=== PATIENT | male | born 1975 | race Caucasian/White ===

== ENCOUNTER 2023-11-07 13:14 | Emergency (ER) | payer SELFPAY ==
--- NOTE | ~2023-11-07 | XR_ITS ---
EXAMINATION: XR ribs LT 2V w CXR 2V DATE: 11/07/2023 18:11 INDICATION: Left rib pain. TECHNIQUE: Frontal and lateral views of the chest and 2 views on 3 radiographs of the left ribs were obtained. COMPARISON: None. FINDINGS: CHEST TWO VIEWS: There is no pneumonia, pleural effusion, or pneumothorax. The heart size is normal. There is mild chronic anterior wedging of multiple vertebral bodies. LEFT RIBS: There is no rib fracture. IMPRESSION: 1. No rib fracture. Reviewed, dictated and finalized at location E. IMPRESSION: 1. No rib fracture.
--- NOTE | ~2023-11-07 | XR_ITS ---
EXAMINATION: XR knee RT 3V DATE: 11/07/2023 18:11 INDICATION: Right knee pain. TECHNIQUE: 3 views of right knee were obtained. COMPARISON: None. FINDINGS: Bone alignment is normal. No fracture. There is mild tricompartmental osteoarthritis. No kn ee joint effusion. IMPRESSION: 1. Mild right knee osteoarthritis. Reviewed, dictated and finalized at location E.
[2023-11-07 13:17] VITALS: BP 111/68; PULSE 76; RESP 16; TEMP 36.8; O2SAT 100
[2023-11-07 15:12] VITALS: BP 98/65; PULSE 88; TEMP 36.8; O2SAT 100
--- NOTE | 2023-11-07 17:07 | ECG_ITS ---
Measurements Intervals [place] Rate: 65 P: 63 UT: 138 QRS: 22 QRSD: 94 T: 120 QT: 419 QTc: 438 Interpretive Statements SINUS RHYTHM LEFT ATRIAL ENLARGEMENT LEFT VENTRICULAR HYPERTROPHY AND ST-T CHANGE ST-T WAVE ABNORMALITY IN HIGH LATERAL LEADS- CONSIDER ISCHEMIA BASELINE ARTIFACT- I, AVR, AVL ABNORMAL ECG NO PREVIOUS ECG AVAILABLE FOR COMPARISON Electronically Signed On 11-07-2023 17:36:38 CDT by Aric Crystal D.O.
--- NOTE | 2023-11-07 17:20 | ED.GENADULT ---
HPI - General Adult General Chief complaint: Unspecified Stated complaint: left side rib pain x 2 weeks Time Seen by Provider: 11/07/23 17:07 Source: patient Mode of arrival: ambulatory Limitations: no limitations History of Present Illness HPI narrative: This is a 48 year old male that presents to the ER for left sided rib pain. Ongoing over the last week. Reports the pain is worse with palpation of the area. Under his left lower ribs. He has not been taking anything for pain. No associated symptoms. Denies fever, shortness of breath, cough or lower extremity edema. Related Data Allergies Allergy/AdvReac Type Severity Reaction Status Date / Time No Known Allergies Allergy Verified 11/07/23 17:32 Review of Systems Review of Systems: CONSTITUTIONAL: Denies fever CARDIOVASCULAR: Reports chest/rib pain. Denies edema. RESPIRATORY: Denies cough or dyspnea. All systems reviewed & are unremarkable except as noted in HPI and below PMFSH Past Medical History Medical History (Updated 11/07/23 @ 22:35 by Mary Jo Frank PA-C) No active medical problems Social History Social History (Updated 11/07/23 @ 17:22 by Mary Jo Frank PA-C) Smoking status: Never smoker Exam Narrative: GENERAL: Well-appearing, well-nourished, and in no acute distress. HEAD: Normocephalic, atraumatic. EYES: EOMI. NECK: Supple. No adenopathy or masses. No JVD CHEST: Clear to auscultation. No respiratory distress. No wheezes rales or rhonchi HEART: Regular rate and rhythm. Systolic murmur heard best at the right sternal border. Normal peripheral pulses. EXTREMITIES: Normal range of motion. No edema or erythema. SKIN: Warm, dry, no rash. NEURO: No focal deficits. Alert and oriented x3. PSYCH: Normal mood and affect Course Course Emergency Course: Patient updated on his workup and recommendation for admission. He declines to be admitted at this time Consultations Consultation #1: Spoke with Dr. Carbajal about patient and workup. Does recommend admission for further evaluation Date: 11/07/23 Vital Signs Vital signs: Vital Signs Temperature 98.3 F 11/07/23 13:17 Pulse Rate 76 11/07/23 13:17 Respiratory Rate 16 11/07/23 13:17 Blood Pressure 111/68 11/07/23 13:17 Pulse Oximetry 100 11/07/23 13:17 Oxygen Delivery Room Air 11/07/23 13:17 Temperature 98.2 F 11/07/23 15:12 Pulse Rate 66 11/07/23 21:01 Respiratory Rate 13 11/07/23 21:01 Blood Pressure 102/78 11/07/23 21:01 Pulse Oximetry 100 11/07/23 21:01 Oxygen Delivery Room Air 11/07/23 13:17 Medical Decision Making MDM Narrative Medical decision making narrative: Patient presents to the emergency department for chest pain that has been ongoing over the last week. He is afebrile and nontoxic appearing. His vitals are stable. Cbc without leukocytosis. Shows normocytic anemia hemoglobin of 13.7. Metabolic panel without concerning findings. EKG does show significant T-wave inversions in the lateral leads. His baseline and 3 hour troponin are not elevated, although up trending. Chest x-ray without acute findings. Patient also endorsing some right posterior knee pain. His right knee x-ray does show mild osteoarthritis. Spoke with Dr. Carbajal about patient and workup. Does recommend admission for further evaluation. Patient updated on his workup and recommendation for admission. He declines to be admitted at this time. Will be given primary and Cardiology for follow-up. Instructed to return at any time for further evaluation and management Differential Diagnosis Differential Diagnosis: Chest wall pain, angina, valvular disease, pneumonia Vital Signs Vital Signs: Vital Signs Temperature 98.3 F 11/07/23 13:17 Pulse Rate 76 11/07/23 13:17 Respiratory Rate 16 11/07/23 13:17 Blood Pressure 111/68 11/07/23 13:17 Pulse Oximetry 100 11/07/23 13:17 Oxygen Delivery Room Air 11/07/23 13:17 Temperature 98.2 F
[2023-11-07 17:42] LABS: Basophils Absolute Auto 0.1 K/mm3 (0.0-0.1); Basophils Percent Auto 0.9 % (0.2-1.2); Eosinophils Absolute Auto 0.1 K/mm3 (0-0.3); Eosinophils Percent Auto 1.1 % (0-4.4); Hematocrit 41.5 % (42.0-52.0); Hemoglobin 13.7 g/dL (14.0-18.0); Immature Granulocyte Absolute 0.02 K/mm3 (0.00-0.031); Immature Granulocyte Percent A 0.2 % (0-0.5); Lymphocytes Absolute Auto 2.04 K/mm3 (0.9-3.2); Lymphocytes Percent Auto 23.1 % (18.3-44.2); Mean Corpuscular Hemoglobin 31.5 pg (26-34); Mean Corpuscular Volume 95.4 fl (80-100); Mean Platelet Volume 10.2 fl (7.4-10.4); Monocytes Absolute Auto 0.4 K/mm3 (0.1-0.6); Monocytes Percent Auto 4.3 % (2.6-8.5); Neutrophils Absolute Auto 6.2 K/mm3 (1.3-6.7); Neutrophils Percent Auto 70.4 % (45.5-73.1); Platelet Count Result 252 k/mm3 (150-375); Red Blood Count 4.35 M/mm3 (4.6-6.20); Red Cell Distribution Width 12.9 % (11.5-14.5); White Blood Count 8.8 K/mm3 (4.5-10.0)
[2023-11-07 17:47] LABS: Alanine Aminotransferase 18 U/L (6-50); Albumin Level 4.6 g/dL (3.5-5.1); Alkaline Phosphatase 64 U/L (38-126); Anion Gap 3 mmol/L (8-16); Aspartate Amino Transferase 29 U/L (17-59); Bilirubin,Total 0.6 mg/dL (0.2-1.3); Blood Urea Nitrogen 17 mg/dL (9-20); Calcium 9.4 mg/dL (8.4-10.2); Carbon Dioxide 28 mmol/L (22-30); Chloride 106 mmol/L (98-107); Estimated CRCL calculation 73 ml/min; Estimated Glomerular Filt Rate > 60; Glucose 102 mg/dL (65-110); Potassium 4.9 mmol/L (3.4-5.0); Sodium 137 mmol/L (137-145)
[2023-11-07 17:54] LABS: INR 0.9; Prothrombin Time 12.6 Seconds (11.1-14.7)
[2023-11-07 17:55] LABS: Partial Thromboplastin Time 29.6 SECONDS (22.3-36.8)
[2023-11-07 17:59] LABS: Troponin I 0.013 ng/mL (0.000-0.034)
[2023-11-07 19:22] LABS: D Dimer < 0.27 ug/mL (<0.48)
[2023-11-07 21:01] VITALS: BP 102/78; PULSE 66; RESP 13; O2SAT 100
--- NOTE | 2023-11-07 21:01 | ECG_ITS ---
Measurements Intervals [place] Rate: 54 P: 65 [place]: 137 QRS: 36 QRSD: 92 T: 135 QT: 435 QTc: 414 Interpretive Statements SINUS BRADYCARDIA LEFT ATRIAL ENLARGEMENT LEFT VENTRICULAR HYPERTROPHY AND ST-T CHANGE ST-T WAVE ABNORMALITY IN HIGH LATERAL LEADS- CONSIDER ISCHEMIA ABNORMAL ECG COMPARED TO ECG 11/07/2023 17:24:24 SINUS BRADYCARDIA NOW PRESENT Electronically Signed On 11-08-2023 6:34:46 CDT by Aric Crystal D.O.
[2023-11-07 21:35] LABS: Troponin I 0.024 ng/mL (0.000-0.034)
== END 2023-11-07 23:38 | disposition home or self-care (01) ==
PROVIDERS: Emergency Provider Physician Assistant
DX: R07.81 Pleurodynia (principal); M17.11 Unilateral primary osteoarthritis, right knee; R94.31 Abnormal electrocardiogram [ECG] [EKG]; I51.7 Cardiomegaly; R00.1 Bradycardia, unspecified
CPT/HCPCS: 36415; 71046; 71100; 73562; 80053; 84484; 85025; 85380; 85610; 85730; 93005; 99284